=== PATIENT | female | born 1955 | race Caucasian/White ===

== ENCOUNTER 2017-10-05 11:57 | Outpatient (CLI) | payer MEDICARE | END 2017-10-05 11:58 | disposition home or self-care (01) | LOC: BICMRI 11:57 | PROVIDERS: ATTEND Family Medicine | DX: M54.2 Cervicalgia (principal); M47.892 Other spondylosis, cervical region | CPT/HCPCS: 72141 ==

== ENCOUNTER 2018-11-16 09:36 | Outpatient (CLI) | payer MEDICARE ==
--- NOTE | 2018-11-16 10:15 | ULT ---
ABDOMINAL AORTIC ULTRASOUND WT WARD SCALE AND DOPPLER COLOR FLOW IMAGING AND SPECTRAL ANALYSIS: Date: 11/16/18 CLINICAL HISTORY: Screening evaluation for abdominal aortic aneurysm. FINDINGS: Scattered atherosclerotic plaque formation present. There is no evidence of abdominal aortic aneurysm demonstrated. The proximal abdominal aorta measures 2.7 cm in diameter, mid abdominal aorta 1.8 cm, and distal abdominal aorta 1.7 cm. IMPRESSION: No aneurysmal dilatation of the abdominal aorta is demonstrated. POS: C
--- NOTE | 2018-11-16 10:44 | ULT ---
BILATERAL CAROTID DUPLEX ULTRASOUND: HISTORY: Carotid bruit TECHNIQUE: Grayscale, color-flow and spectral Doppler ultrasound imaging of the extracranial carotid artery syst ems was performed bilaterally. FINDINGS: There is a small amount of plaque in the left carotid bulb The peak systolic velocity in the right ICA measures 109 cm/s with an end-diastolic velocity of 39 cm /s and a systolic ratio of 1.2. The peak systolic velocity in the left ICA measures 91 cm/s with an end-diastolic velocity of 22 cm/s and a systolic ratio of 0.92. Flow in both vertebral arteries remains antegrade. IMPRESSION: No evidence of hemodynamically significant stenosis.
== END 2018-11-16 09:37 | disposition home or self-care (01) ==
LOC: BICULT 09:36
PROVIDERS: ATTEND Family Medicine
DX: Z13.6 Encounter for screening for cardiovascular disorders (principal); R09.89 Other specified symptoms and signs involving the circulatory and respiratory systems
CPT/HCPCS: 76775; 93880